=== PATIENT | female | born 1975 ===

== ENCOUNTER 2019-04-08 12:04 | Emergency (ER) | payer BC, OTHER ==
[2019-04-08 12:25] VITALS: BP 147/77
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
== END 2019-04-08 13:53 | disposition home or self-care (01) ==
LOC: UCEAST 12:04
DX: F41.9 Anxiety disorder, unspecified (principal); F17.210 Nicotine dependence, cigarettes, uncomplicated
CPT/HCPCS: 99202; G0463